=== PATIENT | female | born 1940 | race Two or more races ===

== ENCOUNTER 2018-03-11 06:35 | Emergency (ER) | payer OTHER ==
[~2018-03-11] VITALS: Ht 152.4 cm; Wt 81.6 kg
[~2018-03-11 06:35] MED LIST: COZAAR50 MG; MEDROL4 MG PO; TUSSIN100 MG/5 M PO; ZITHROMAX TRI-500 MG PO
== END 2018-03-11 23:15 | disposition home or self-care (01) ==
LOC: ER 06:35
DX: N20.1 Calculus of ureter (principal); R10.32 Left lower quadrant pain

== ENCOUNTER 2018-03-27 08:57 | Outpatient (CLI) | payer OTHER | END 2018-03-27 09:00 | disposition home or self-care (01) | LOC: LAB 08:57 | DX: N30.00 Acute cystitis without hematuria (principal); R82.79 Other abnormal findings on microbiological examination of urine ==

== ENCOUNTER 2018-03-27 10:37 | Outpatient (CLI) | payer OTHER | END 2018-03-27 10:43 | disposition home or self-care (01) | LOC: RAD 10:37 | DX: N20.0 Calculus of kidney (principal) ==

== ENCOUNTER 2018-08-18 14:51 | Emergency (ER) | payer OTHER ==
[~2018-08-18] VITALS: Ht 160 cm; Wt 81.6 kg
== END 2018-08-18 21:35 | disposition home or self-care (01) ==
LOC: ER 14:51
DX: J45.998 Other asthma (principal)

== ENCOUNTER 2019-04-17 17:22 | Emergency (ER) | payer OTHER ==
[~2019-04-17] VITALS: Ht 160 cm; Wt 80.3 kg
== END 2019-04-17 20:11 | disposition home or self-care (01) ==
LOC: ER 17:22
DX: J40 Bronchitis, not specified as acute or chronic (principal)

== ENCOUNTER → 2021-11-22 12:55 | Outpatient (CLI) | payer OTHER | END | disposition home or self-care (01) | LOC: SONOGRAMA 12:55 | PROVIDERS: ATTEND Internal Medicine Nephrology | DX: N28.1 Cyst of kidney, acquired (principal) ==